=== PATIENT | male | born 1940 | race Caucasian/White ===

== ENCOUNTER → 2016-07-01 | Outpatient (CLI) | payer OTHER ==
[2016-07-01 08:30] LABS: BASOPHILS # (AUTO) 0.07 10*3/UL; BASOPHILS % (AUTO) 0.9 % (0-1); EOSINOPHILS # (AUTO) 0.25 10*3/UL; HEMOGLOBIN 16.8 g/dL (14.0-18.0); LYMPHOCYTES # (AUTO) 1.27 10*3/uL; MEAN CORPUSCULAR HEMOGLOBIN 31.8 PG (27-31); MEAN CORPUSCULAR HGB CONC 34.3 g/dL (33-37); MEAN CORPUSCULAR VOLUME 92.8 FL (80-90); MEAN PLATELET VOLUME 9.6 FL (7.4-12.2); MONOCYTES # (AUTO) 0.78 10*3/UL (0.3-0.8); MONOCYTES % (AUTO) 9.5 % (5-15); NEUTROPHILS # (AUTO) 5.84 10*3/UL; RED BLOOD COUNT 5.28 10^6/uL (4.70-6.10)
[2016-07-01 08:32] LABS: PLATELET MORPHOLOGY COMMENT NORMAL MORPHOLOGY (NORM); RBC MORPHOLOGY COMMENT NORMAL MORPHOLOGY (NORM); WBC MORPHOLOGY COMMENT NORMAL MORPHOLOGY (NORM)
[2016-07-01 08:48] LABS: HEMOGLOBIN A1C 7.37 % (4.2-6.0)
[2016-07-01 08:56] LABS: BUN/CREATININE RATIO 24.54 (6-20); CALCIUM 10.1 mg/dL (8.7-10.7); CHOL/HDL RATIO 3.15 RATIO (0-4.0); LDL CHOLESTEROL,CALCULATED 88.6 mg/dL; SERUM ALBUMIN 3.9 g/dL (3.5-4.8)
[2016-07-01 08:58] LABS: CREATININE, URINE 109.2 MG/DL (15-500)
== END ==
LOC: LAB 08:09
PROVIDERS: ATTEND Internal Medicine
DX: E11.9 Type 2 diabetes mellitus without complications (principal); Z79.4 Long term (current) use of insulin; E78.5 Hyperlipidemia, unspecified; I10 Essential (primary) hypertension; F17.200 Nicotine dependence, unspecified, uncomplicated
CPT/HCPCS: 36415; 80053; 80061; 82043; 82550; 83036; 84443; 85025

== ENCOUNTER → 2016-07-02 | Outpatient (CLI) | payer OTHER | LOC: MMPC 11:11 | PROVIDERS: ATTEND Internal Medicine | DX: E11.40 Type 2 diabetes mellitus with diabetic neuropathy, unspecified (principal); E78.5 Hyperlipidemia, unspecified; I10 Essential (primary) hypertension; R33.9 Retention of urine, unspecified; Z87.891 Personal history of nicotine dependence | CPT/HCPCS: 99214; G0463 ==

== ENCOUNTER → 2016-10-24 | Outpatient (CLI) | payer OTHER ==
--- NOTE | 2016-10-24 13:04 | DI ---
PA /LATERAL CHEST X-RAY, 10/24/2016 12:11 PM : Clinical History: Right heart failure. Previous Exam: 06/19/2005. There is no acute soft tissue or bony abnormality. There is a metallic foreign body located in the so ft tissues at the base of the neck on the left side. This was present on the prior exam as well. Ther e is mild cardiomegaly without definite radiographic evidence of CHF. However, there is a small right pleural effusion. No acute infiltrates are present. Mediastinal structures are normal. There are no pulmonary nodules. Readin. Cardiomegaly without definite radiographic evidence of CHF. CHF can be present without radiograph ic findings. There is a right pleural effusion. 2. There is no acute infiltrate.
[2016-10-24 13:05] LABS: BUN/CREATININE RATIO 25.55 (6-20); CALCIUM 8.7 mg/dL (8.7-10.7); SERUM ALBUMIN 3.5 g/dL (3.5-4.8)
--- NOTE | 2016-10-24 16:18 | PE ---
[facility] Interpretive Statements [id number]
== END ==
LOC: RAD 12:22
PROVIDERS: ATTEND Internal Medicine
DX: I50.9 Heart failure, unspecified (principal); I10 Essential (primary) hypertension; J90 Pleural effusion, not elsewhere classified; I51.7 Cardiomegaly; F17.200 Nicotine dependence, unspecified, uncomplicated
CPT/HCPCS: 36415; 71020; 80053; 83880; 94060